=== PATIENT | female | born 1990 | race American Indian/Alaskan Native ===

== ENCOUNTER 2018-07-31 17:09 | Emergency (ER) | payer OTHER ==
[2018-07-31 17:43] VITALS: RESP 18; TEMP 99; BMI 22.8
[2018-07-31] MEDS ORDERED: Sodium Chloride 0.9% 1,000 ML IV STA (18:13)
[2018-07-31 19:17] LABS: BASO # 0.02 K/mm3 (0.0-2.0); BASO % 0.3 % (0.0-3.0); EOS # 0.1 (0.0-0.7); HEMOGLOBIN 11.8 g/dL (12.0-16.0); LYMPH # 1.6 (1.2-3.4); LYMPH % 20.6 % (22.0-35.0); MEAN CELL VOLUME 91.9 fl (80.0-105.0); MEAN CORPUSCULAR HEMOGLOBIN 30.9 pg (25.0-35.0); MEAN CORPUSCULAR HGB CONC 33.6 g/dl (31.0-37.0); MEAN PLATELET VOLUME 9.6 fl (7.0-11.0); MONO # 0.5 (0.1-0.6); MONO % 6.5 % (1.0-6.0); RBC 3.82 10^6/uL (3.5-6.1); RED CELL DISTRIBUTION WIDTH 13.6 % (11.5-14.5)
[2018-07-31 19:22] LABS: ALB/GLOB RATIO 1.2 (1.1-1.8); ALBUMIN 4.1 g/dL (3.0-4.8); ALT/SGPT 58 U/L (7-56); AST/SGOT 49 U/L (14-36); BLOOD UREA NITROGEN 9 mg/dL (7-21); CALCIUM 9.8 mg/dL (8.4-10.5); GFR NON-AFRICAN AMERICAN > 60; LIPASE 35 U/L (23-300)
[2018-07-31 20:05] LABS: PH,URINE 6.5 (4.7-8.0); URINE BILIRUBIN NEGATIVE (NEGATIVE); URINE BLOOD LARGE (NEGATIVE); URINE GLUCOSE (UA) NEGATIVE (NEGATIVE); URINE LEUKOCYTE ESTERASE NEGATIVE Leu/uL (NEGATIVE); URINE PROTEIN NEGATIVE mg/dL (<30 mg/dL); URINE UROBILINOGEN 0.2 E.U./dL (<1 E.U./dL)
[2018-07-31 20:09] LABS: URINE COLOR YELLOW (YELLOW)
[2018-07-31 20:10] LABS: URINE APPEARANCE SL CLOUDY (CLEAR)
[2018-07-31 20:19] LABS: URINE RBC 25 - 30 /hpf (0-2)
[2018-07-31 20:20] LABS: URINE BACTERIA FEW /hpf
[2018-07-31] MEDS ORDERED: Morphine 2 mg/ml ISec IVP STA (20:46)
--- NOTE | 2018-07-31 21:37 | ED PDOC ---
Arrival/HPI - General Chief Complaint: Abdominal Pain Time Seen by Provider: 07/31/18 17:52 Historian: Patient - History of Present Illness Narrative History of Present Illness (Text): 07/31/18 21:29 27-year-old female presents today with lower abdominal pain status post D&C on 07/27/2018. Patient states she was approximately 8 weeks when she had a elective surgical . Patient states that prior to the procedure she was having some abdominal cramping and after the procedure symptoms seem to have improved. Patient states for the past 2 days she has been developing increasing lower abdominal cramping with slight amount of vaginal bleeding. Patient states she has been noticing that she has been passing blood clots. Patient denies chest pain or shortness of breath. No nausea vomiting diarrhea or constipation. Patient states she has noticed she has been urinating more frequently. Patient denies fevers or chills. No other complaints Past Medical History - Provider Review Nursing Documentation Reviewed: Yes - Travel History Have you recently traveled outside [place] w/in the past 3 mons?: No - Reproductive Currently : No (surgical on 07/27/18) - Psychiatric Hx Substance Use: No - Surgical History Other/Comment: "surgical " 07/27/18 - Anesthesia Hx Anesthesia: Yes Hx Anesthesia Reactions: No Family/Social History - Physician Review Nursing Documentation Reviewed: Yes Family/Social History: Unknown Family HX Smoking Status: Never Smoked Hx Alcohol Use: No Hx Substance Use: No Allergies/Home Meds Allergies/Adverse Reactions: Allergies No Known Allergies Allergy (Verified 07/31/18 17:43) Review of Systems - Review of Systems Constitutional: absent: Fatigue, Fevers Respiratory: absent: SOB, Cough Cardiovascular: absent: Chest Pain, Palpitations Gastrointestinal: Abdominal Pain. absent: Constipation, Diarrhea, Nausea, Vomiting Genitourinary Female: Frequency, Vaginal Bleeding. absent: Dysuria, Hematuria, Vaginal Discharge Musculoskeletal: absent: Arthralgias, Back Pain, Neck Pain Skin: absent: Rash, Pruritis Neurological: absent: Headache, Dizziness Psychiatric: absent: Anxiety, Depression Physical Exam Vital Signs Reviewed: Yes Vital Signs Temp Pulse Resp BP Pulse Ox 07/31/18 17:43 99.0 F 88 18 121/80 100 Temperature: Afebrile Blood Pressure: Normal Pulse: Regular Respiratory Rate: Normal Appearance: Positive for: Well-Appearing, Non-Toxic, Comfortable Pain Distress: None Mental Status: Positive for: Alert and Oriented X 3 - Systems Exam Head: Present: Atraumatic Mouth: Present: Moist Mucous Membranes Neck: Present: Normal Range of Motion Respiratory/Chest: Present: Clear to Auscultation, Good Air Exchange. No: Res piratory Distress, Accessory Muscle Use Cardiovascular: Present: Regular Rate and Rhythm, Normal S1, S2. No: Murmurs Abdomen: Present: Tenderness (+ minimal suprapubic/pelvic tenderness. no rlq tenderness. ), Normal Bowel Sounds. No: Distention, Rebound, Guarding Genitourinary/Pelvic Exam: Present: Normal External Genitalia, Vaginal Bleeding (small amount of bleeding noted. ), Other (chaparoned by EMT balwinder). No: Vaginal Discharge Back: Present: Normal Inspection. No: CVA Tenderness Neurological: Present: GCS=15, Speech Normal Skin: Present: Warm, Dry, Normal Color. No: Rashes Psychiatric: Present: Alert, Oriented x 3 Medical Decision Making ED Course and Treatment: 07/31/18 21:32 Patient is nontoxic well appearing with stable vital signs presenting with suprapubic/pelvic abdominal pain status post D&C on 07/27/2018 CBC wnl CMP wnl beta hcg; [id number] type and screen: A+ Urinalysis + blood, no leukocytes Ultrasound: Findings Uterus Measures 7.3 x 4.83 x 4.91 cm. Normal in size and appearance. Uterine fibroids measure 3.3 x 2.56 x 2.52 cm, 5.84 x 4.9 x 5.28 cm and 3.61 x 3.42 x 3.15 cm. Endometrium Measures 9.7 mm in diameter. Unremarkable. Cervix No cervical abnormality identified measuring 3.31 cm. Right ovary Measures 2.46 x 1.58 x 1.8 cm. No solid mass. Normal flow. Left ovary Measures 4.2 x 2.46 x 3.3 cm. No solid mass. Normal flow. Free fluid Fluid is seen in the cul-de-sac. Other Findings None. Impression 1. Uterine fibroids. 2. Fluid is seen at the cul-de-sac. pt with minimal bleeding noted. vitals stable. morphine given for pain. pt does not want to have CT of the abd/pelvis; pt states is feeling better and she will see [facility] tomorrow and states she will return if pain returns. Patient reassessment: pt is non toxic well appearing; no distress. feeling better after medications. will d/c home to f/u with [facility] tomorrow. advised immediate return if symptoms worsen,persist or if new concerning symptoms develop. Discussed all results with patient in depth All aspects of this case were discussed with dr. andujar Impression: vaginal bleeding, abdominal pain Tylenol every 4 hours as needed for pain Increase fluids Followup with the [facility] tomorrow. Return immediately if symptoms worsen persist or if new symptoms develop: High fevers, heavy bleeding, severe abdominal pain, vomiting, diarrhea, dizziness or weakness or any other concerning symptoms develop. Reassessment Condition: Re-examined, Improved - Lab Interpretations Lab Results: Total Bilirubin 0.7 mg/dL (0.2-1.3) 07/31/18 19:01 AST 49 U/L (14-36) H 07/31/18 19:01 ALT 58 U/L (7-56) H 07/31/18 19:01 Alkaline Phosphatase 65 U/L (38-126) 07/31/18 19:01 Total Protein 7.6 g/dL (5.8-8.3) 07/31/18 19:01 Albumin 4.1 g/dL (3.0-4.8) 07/31/18 19:01 Globulin 3.5 gm/dL 07/31/18 19:01 Albumin/Globulin Ratio 1.2 (1.1-1.8) 07/31/18 19:01 Lipase 35 U/L (23-300) 07/31/18 19:01 Urine Color Yellow (YELLOW) 07/31/18 19:50 Urine Appearance Sl cloudy (CLEAR) 07/31/18 19:50 Urine pH 6.5 (4.7-8.0) 07/31/18 19:50 Ur Specific [place] 1.020 (1.005-1.035) 07/31/18 19:50 Urine Protein Negative mg/dL (<30 mg/dL) 07/31/18 19:50 Urine Glucose (UA) Negative mg/dL (NEGATIVE) 07/31/18 19:50 Urine Ketones Negative mg/dL (NEGATIVE) 07/31/18 19:50 Urine Blood Large (NEGATIVE) H 07/31/18 19:50 Urine Nitrate Negative (NEGATIVE) 07/31/18 19:50 Urine Bilirubin Negative (NEGATIVE) 07/31/18 19:50 Urine Urobilinogen 0.2 E.U./dL (<1 E.U./dL) 07/31/18 19:50 Ur Leukocyte Esterase Negative Rahul/uL (NEGATIVE) 07/31/18 19:50 Urine RBC 25 - 30 /hpf (0-2) H 07/31/18 19:50 Urine WBC 5 - 10 /hpf (0-6) H 07/31/18 19:50 Ur Epithelial Cells 4 - 5 /hpf (0-5) 07/31/18 19:50 Urine Bacteria Few /hpf (NONE) 07/31/18 19:50 - RAD Interpretation Radiology Orders: 07/31/18 18:11 TRANSVAGINAL [US] Stat - Medication Orders Current Medication Orders: Discontinued Medications Sodium Chloride (Sodium Chloride 0.9%) 1,000 mls @ 999 mls/hr IV .Q1H1M STA Stop: 07/31/18 19:13 Last Admin: 07/31/18 18:30 Dose: 999 mls/hr eMAR Start Stop Document 07/31/18 18:30 DUNIA (Rec: 07/31/18 18:30 DUNIA [id number]) Intravenous Solution Start Date 07/31/18 Start Time 18:30 End Date 07/31/18 End time 19:30 Total Infusion Time 60 Morphine Sulfate (Morphine) 2 mg IVP STAT STA Stop: 07/31/18 20:47 Ondansetron HCl (Zofran Inj) 4 mg IVP STAT STA Stop: 07/31/18 21:13 Disposition/Present on Arrival - Present on Arrival Any Indicators Present on Arrival: No History of DVT/PE: No History of Uncontrolled Diabetes: No Urinary Catheter: No History of Decub. Ulcer: No History Surgical Site Infection Following: None - Disposition Have Diagnosis and Disposition been Completed?: Yes Diagnosis: Vaginal bleeding, Abdominal pain, S/P D&C (status post dilation and curettage) Disposition: HOME/ ROUTINE Disposition Time: 21:37 Patient Plan: Discharge Patient Problems: Current Active Problems Problem Status Onset Abdominal pain Acute S/P D&C (status post dilation and curettage) Acute Vaginal bleeding Acute Condition: GOOD Discharge Instructions (ExitCare): Acute Abdomen (Belly Pain), Adult (DC) Additional Instructions: Tylenol every 4 hours as needed for pain Increase fluids Followup with the [facility] tomorrow. Return immediately if symptoms worsen persist or if new symptoms develop: High fevers, heavy bleeding, severe abdominal pain, vomiting, diarrhea, dizziness or weakness or any other concerning symptoms develop. Referrals: Shelli Barton MD [Staff Provider] - [facility] [Outside] - Follow up with primary Naya Borrero MD [Medical Doctor] - Follow up with primary [facility] [Outside] - Follow up with primary Forms: [facility] [facility] ([place]ish), WORK NOTE
[2018-07-31] MEDS ORDERED: Oxycodone/Acetaminophen 5/325 mg Tab PO STA (22:11)
[2018-07-31 22:36] VITALS: BP 120/80; PULSE 70; O2SAT 98
--- NOTE | 2018-08-01 09:02 | US ---
Date of service: 07/31/2018 HISTORY: pelvic pain D C on 07/27 for COMPARISON: None available. TECHNIQUE: Transabdominal and transvaginal please note that the transabdominal examination is limited by the absence of a distended urinary bladder. FINDINGS: UTERUS: Measures 7.3 x 4.8 x 4.9 cm. Left lower uterine segment pedunculated subserosal fibroid, 3.4 x 3.2 cm. Heterogeneously echogenic submucosal fibroid, 3.3 x 2.6 x 2.5 cm. Left-sided uterine body intramural/subserosal fibroid, 5.8 x 4.9 x 5.3 cm. ENDOMETRIUM: Measures 25 mm in diameter. Heterogeneous. No definite flow demonstrated within the endometrial contents. Nevertheless, in light of the history cannot rule out retained products of conception. CERVIX: No cervical abnormality identified. RIGHT OVARY: Measures 2.5 x 1.6 x 1.8 cm. No solid mass. Normal flow. LEFT OVARY: Measures 4.2 x 2.5 x 3.3 cm. No solid mass. Normal flow. FREE FLUID: Small amount of free fluid OTHER FINDINGS: None. IMPRESSION: Multiple uterine fibroids. Thickened heterogeneous endometrium. Cannot rule out retained products of conception. Follow-up advised with transvaginal pelvic ultrasound examination. Small amount of fluid in cul-de-sac, nonspecific. The preliminary findings for this examination were reported by [facility] at 8:21 p.m. on 07/31/2018. There is discordance of this report with the preliminary findings. Endometrium was reported as 9 mm width in the preliminary report. This report does not concur without finding.
== END 2018-07-31 22:38 | disposition home or self-care (01) ==
LOC: ED 17:09
DX: O03.6 Delayed or excessive hemorrhage following complete or unspecified spontaneous abortion (principal); R10.30 Lower abdominal pain, unspecified; Z98.890 Other specified postprocedural states
CPT/HCPCS: 76830; 80053; 81001; 81025; 83690; 84702; 85025; 86850; 86900; 87086; 96361; 96374; 96375; 99283; J2270; J2405; J7030